=== PATIENT | female | born 1995 | race Caucasian/White ===

== ENCOUNTER 2017-05-01 03:11 | Emergency (ER) | payer OTHER ==
[~2017-05-01 03:11] MED LIST: AUGMENTIN 875 M1 TAB PO; ELINEST PO; ELINEST-28 TAB1 EACH PO; PRAZOSIN HCL1 MG PO; PRAZOSIN HYDROCH2 MG PO; SERTRALINE HYD100 MG PO; ZYPREXA2.5 M1 PO
--- NOTE | 2017-05-01 03:28 | ED NECK/BACK PAIN COMPLAINT ---
History of Present Illness General Chief Complaint: Neck/Upper Back Pain/Injury Stated Complaint: BACK PAIN PER PT Source: patient Exam Limitations: no limitations Vital Signs & Intake/Output Vital Signs & Intake/Output . Allergies Coded Allergies: apple (Intermediate, MOUTH SWELLING AND ITCHING FROM RAW APPLES 05/01/17) carrot (Intermediate, MOUTH SWELLING AND ITCHING FROM RAW CARROT 05/01/17) celery (Intermediate, MOUTH SWELLING AND ITCHING FROM RAW CELERY 05/01/17) peach (Intermediate, MOUTH SWELLING AND ITCHING FROM RAW PEACH 05/01/17) pear (Intermediate, MOUTH SWELLING AND ITCHING FROM RAW PEAR 05/01/17) walnut (MOUTH SWELLING 05/01/17) Uncoded Allergies: FRUITS (RAW, MOUTH SWELLING 03/08/16) Reconcile Medications Cyclobenzaprine HCl 10 MG TABLET 1 TAB PO TID PRN MUSCLE SPASM Ibuprofen 800 MG TABLET 1 TAB PO TID PRN PAIN Norgestrel-Ethinyl Estradiol (Elinest-28 Tablet) 0.3 MG-30 MCG TABLET 1 TAB PO DAILY CONTROL (Reported) Olanzapine (Zyprexa) 2.5 MG TABLET 1 TAB PO QPM MENTAL HEALTH (Reported) Prazosin Hydrochloride 2 MG CAP 1 CAP PO QPM PTSD (Reported) SERTRALINE HCL (Sertraline Hydrochloride) 100 MG TABLET 1 TAB PO QPM DEPRESSION (Reported) Triage Nurses Notes Reviewed? yes Onset: Gradual Duration: week(s):, waxing and waning Timing: recent history Location: lumbar spine Radiation: none Context: fall/near fall Method of Injury: fall Loss of Consciousness: no loss of consciousness Associated Symptoms: muscle spasm HPI: 21-year-old woman, history of seizure disorder, history of a fall proximal to 2 weeks ago where she fell backwards and landed on her back, presents with upper back pain. At the time, she presented to [facility]. She received a full evaluation and was discharged home. She notes that it hurts mostly in her muscles along her back. She has no dizziness, nausea, chills, chest pain, syncopal symptoms. She is otherwise well and has no other concerns Past History Travel History Traveled to [place] past 21 day No Medical History Any Pertinent Medical History? see below for history Neurological: seizure, admitted to [facility] february 2016 for seizures EENT: NONE Cardiovascular: NONE Respiratory: NONE Gastrointestinal: NONE Hepatic: NONE Renal: NONE Musculoskeletal: NONE Psychiatric: bipolar disease, PTSD Endocrine: NONE Blood Disorders: anemia Cancer(s): NONE Surgical History Surgical History: N Psychosocial History Who do you live with Family What is your primary language Citizen [place] Family History Hx Contributory? No Review of Systems Review of Systems Constitutional: Reports: no symptoms. Eyes: Reports: no symptoms. Ears, Nose, Throat, Mouth: Reports: no symptoms. Respiratory: Reports: no symptoms. Cardiovascular: Reports: no symptoms. Gastrointestinal/Abdominal: Reports: no symptoms. Musculoskeletal: Reports: no symptoms. Skin: Reports: no symptoms. Neurological/Psychological: Reports: no symptoms. All Other Systems: Reviewed and Negative Physical Exam Physical Exam General Appearance: well developed/nourished, mild distress Head: atraumatic Eyes: Bilateral: PERRL, EOMI. Ears, Nose, Throat, Mouth: hearing grossly normal Neck: normal inspection, supple, full range of motion, no midline tenderness, paraspinal muscle spasm to palpation. Respiratory: normal breath sounds Cardiovascular: regular rate/rhythm Gastrointestinal: soft, non-tender Back: normal inspection, muscle spasm, no vertebral tenderness Extremities: normal range of motion Straight Leg Raising: Right: Pain at ____ degrees (pain at 30 degrees bilaterally). Left: Pain at ___ _ degrees (pain at 30 degrees bilaterally). Neurologic/Psych: awake, alert, oriented x 3, normal mood/affect Skin: intact, normal color, warm/dry Comments: light touch, strength, dtr's are intact bilaterally. Progress Differential Diagnosis: muscle spasm vs contusion vs other. Plan of Care: Current Medications Sig/Dereck Start time Last Medication Dose Stop Time Status Admin Acetaminophen 975 MG ONCE ONE 05/01 415 UNVr (Tylenol) 05/01 416 Cyclobenzaprine HCl 10 MG ONCE ONE 05/01 415 UNVr (Flexeril 10MG Tab) 05/01 416 Ibuprofen 800 MG ONCE ONE 05/01 415 UNVr (Motrin) 05/01 416 Departure Departure Disposition: HOME OR SELF CARE Condition: Stable Clinical Impression Primary Impression: Back pain Referrals: DANUTA GOMEZ MD (PCP/Family) Departure Forms: Customer Survey General Discharge Information Prescriptions: Current Visit Scripts Ibuprofen 1 TAB PO TID PRN PAIN #50 TAB Cyclobenzaprine HCl 1 TAB PO TID PRN MUSCLE SPASM #50 TAB Ref 1 Comments 05/01/17, 4am... benign neuro exam, pt with reproducible paraspinal muscle spasm. Pt safe for discharge with supportive measures. Close follow up advised.
[2017-05-01] MEDS ORDERED: CYCLOBENZAPRINE10 M1 PO (04:09)
[2017-05-01] MEDS ORDERED: IBUPROFEN800 M1 PO (04:09)
[2017-05-01 04:28] VITALS: BP 109/55
== END 2017-05-01 04:38 ==
LOC: ERH 03:11
DX: M54.9 Dorsalgia, unspecified (principal)